=== PATIENT | female | born 1950 | race Two or more races ===

== ENCOUNTER 2024-03-07 16:13 | Emergency (ER) | payer MEDICARE ==
[~2024-03-07] VITALS: Ht 142.2 cm; Wt 70.3 kg
[2024-03-07 16:29] VITALS: TEMP 98.8
--- NOTE | 2024-03-07 16:32 | NUR ---
BIB FAMILY C/O N/V SINCE 1130 AM AFTER DIALYSIS DYSURIA AND URINARY FREQUENCY.
--- NOTE | 2024-03-07 16:37 | NUR ---
UA sent to lab
--- NOTE | 2024-03-07 16:45 | NUR ---
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
[2024-03-07 16:54] LABS: BASOPHILS % (AUTO) 0.4 % (0.0-2.0); EOSINOPHILS # (AUTO) 0.1 K/uL (0.0-0.7); EOSINOPHILS % (AUTO) 1.9 % (0.0-6.0); HEMATOCRIT 35 % (33-45); HEMOGLOBIN 11.1 g/dL (11.5-14.8); LYMPHOCYTES # (AUTO) 0.7 K/uL (0.8-4.8); LYMPHOCYTES % (AUTO) 10.9 % (20.0-44.0); MEAN CORPUSCULAR HEMOGLOBIN 31 PG (26.0-33.0); MEAN CORPUSCULAR HGB CONC 32 g/dl (31.0-36.0); MEAN CORPUSCULAR VOLUME 97 fL (82-100); MONOCYTES # (AUTO) 0.4 K/uL (0.1-1.30); MONOCYTES % (AUTO) 6.2 % (2.0-12.0); NEUTROPHILS # (AUTO) 5.3 K/uL (1.8-8.9); NEUTROPHILS % (AUTO) 80.6 % (43.0-81.0); PLATELET COUNT (AUTO) 171 K/uL (150-450); RED BLOOD CELL COUNT(AUTO) 3.58 MIL/uL (4.0-5.2); WHITE BLOOD COUNT (AUTO) 6.5 K/uL (4.3-11.0)
[2024-03-07 16:56] LABS: APPEARANCE,URINE SLIGHTLY CLOUDY (CLEAR); BILIRUBIN,URINE NEGATIVE (NEGATIVE); BLOOD, URINE TRACE-INTA Ery/uL (NEGATIVE); COLOR,URINE YELLOW (YELLOW); KETONES,URINE NEGATIVE (NEGATIVE); LEUKOCYTE ESTERASE ,URINE 3+ (NEGATIVE); NITRITE, URINE NEGATIVE (NEGATIVE); PROTEIN,URINE 3+ mg/dl (NEGATIVE); UGLUCOSE TRACE mg/dL (NEGATIVE); UROBILINOGEN,URINE 0.2 EU/dL (0.2)
[2024-03-07] MEDS ORDERED: ONDANSETRON HCL/PF 4 MG/2 ML VIAL IVP ONE (17:00)
[2024-03-07 17:07] LABS: CALCIUM, SERUM 7.7 mg/dL (8.5-10.1); CARBON DIOXIDE 30 mmol/L (21-32); CHLORIDE 97 mmol/L (98-107); CREATININE 2.8 mg/dL (0.6-1.3); GLUCOSE 141 mg/dL (74-106); POTASSIUM 3.6 mmol/L (3.5-5.1); SODIUM SERUM 137 mmol/L (136-145); UREA NITROGEN, BLOOD 23 mg/dL (7-18)
[2024-03-07] MEDS ORDERED: ONDANSETRON 4 MG TAB.RAPDIS ONE (17:10)
[2024-03-07 17:12] LABS: ALANINE AMINOTRANSFERASE 25 U/L (12-78); ALBUMIN 3.3 g/dL (3.4-5.0); ALKALINE PHOSPHATASE 176 U/L (46-116); ASPARTATE AMINOTRANSFERASE 24 U/L (15-37); BILIRUBIN,DIRECT 0.1 mg/dL (0.0-0.2); BILIRUBIN,TOTAL 0.4 mg/dL (0.2-1.0); LIPASE 27 U/L (16-77)
[2024-03-07] MEDS: ONDANSETRON 4 MG TAB.RAPDIS SL ONE (17:12)
[2024-03-07 17:15] LABS: WBC,URINE 51-80 /HPF (0-3)
[2024-03-07 17:16] LABS: ADD URINE CULTURE YES; BACTERIA,URINE 3+ /HPF (None Seen); SQUAMOUS EPITHELIAL CELL,UR 21-50 /HPF (None Seen)
[2024-03-07 17:20] LABS: INR 1.01 (0.91-1.10); PARTIAL THROMBOPLASTIN TIME 28.8 SEC (24.3-34.3); PROTHROMBIN TIME 10.7 SECS (9.2-11.1)
[2024-03-07] MEDS ORDERED: SULF1TAB48 PO (17:58)
[2024-03-07 18:47] VITALS: BP 130/70; O2SAT 96
--- NOTE | 2024-03-07 18:47 | NUR ---
Patient discharged to home in stable condition. Written and verbal after care instructions given. Patient verbalizes understanding of instruction.
[2024-03-07] MEDS ORDERED: CEPH-570 PO (21:14)
== END 2024-03-07 18:48 | disposition home or self-care (01) ==
LOC: ER 16:17
DX: N39.0 Urinary tract infection, site not specified (principal); E11.22 Type 2 diabetes mellitus with diabetic chronic kidney disease; I12.0 Hypertensive chronic kidney disease with stage 5 chronic kidney disease or end stage renal disease; N18.6 End stage renal disease; Z99.2 Dependence on renal dialysis
CPT/HCPCS: 99284; 93005; 85025; 80048; 87086; 83690; 80076; 81001; 36415; 84484; 85730; Q0162

== ENCOUNTER 2024-04-01 13:01 | Emergency (ER) | payer MEDICARE ==
[~2024-04-01] VITALS: Ht 142.2 cm; Wt 64.4 kg
[~2024-04-01 13:01] MED LIST: CEPH-570 PO
[2024-04-01 15:52] LABS: BASOPHILS % (AUTO) 0.6 % (0.0-2.0); EOSINOPHILS # (AUTO) 0.1 K/uL (0.0-0.7); EOSINOPHILS % (AUTO) 1.7 % (0.0-6.0); HEMATOCRIT 37 % (33-45); LYMPHOCYTES # (AUTO) 0.9 K/uL (0.8-4.8); MEAN CORPUSCULAR HEMOGLOBIN 32 PG (26.0-33.0); MEAN CORPUSCULAR HGB CONC 33 g/dl (31.0-36.0); MEAN CORPUSCULAR VOLUME 97 fL (82-100); MONOCYTES # (AUTO) 0.7 K/uL (0.1-1.30); MONOCYTES % (AUTO) 11.1 % (2.0-12.0); NEUTROPHILS # (AUTO) 4.2 K/uL (1.8-8.9); NEUTROPHILS % (AUTO) 71.6 % (43.0-81.0); PLATELET COUNT (AUTO) 167 K/uL (150-450); RED BLOOD CELL COUNT(AUTO) 3.79 MIL/uL (4.0-5.2); RED CELL DISTRIBUTION WIDTH 13.5 % (11.5-15.0); WHITE BLOOD COUNT (AUTO) 5.9 K/uL (4.3-11.0)
[2024-04-01 16:06] LABS: CARBON DIOXIDE 28 mmol/L (21-32); CHLORIDE 98 mmol/L (98-107); GLUCOSE 190 mg/dL (74-106); POTASSIUM 3.3 mmol/L (3.5-5.1); SODIUM SERUM 137 mmol/L (136-145); UREA NITROGEN, BLOOD 24 mg/dL (7-18)
[2024-04-01 16:12] LABS: ALANINE AMINOTRANSFERASE 16 U/L (12-78); ALBUMIN 3.4 g/dL (3.4-5.0); ALKALINE PHOSPHATASE 157 U/L (46-116); ASPARTATE AMINOTRANSFERASE 16 U/L (15-37); BILIRUBIN,DIRECT 0.1 mg/dL (0.0-0.2); BILIRUBIN,TOTAL 0.4 mg/dL (0.2-1.0); LIPASE 37 U/L (16-77); TOTAL PROTEIN, SERUM 7.2 g/dL (6.4-8.2)
[2024-04-01 16:17] LABS: CALCIUM, SERUM 7.6 mg/dL (8.5-10.1)
[2024-04-01 17:00] VITALS: BP 157/64; TEMP 98.8; O2SAT 100
== END 2024-04-01 19:15 | disposition home or self-care (01) ==
LOC: ER 13:06
DX: S09.90XA Unspecified injury of head, initial encounter (principal); M25.531 Pain in right wrist; R11.2 Nausea with vomiting, unspecified; I12.0 Hypertensive chronic kidney disease with stage 5 chronic kidney disease or end stage renal disease; N18.6 End stage renal disease; E11.22 Type 2 diabetes mellitus with diabetic chronic kidney disease; Z88.2 Allergy status to sulfonamides; W07.XXXA Fall from chair, initial encounter; Y93.89 Activity, other specified; Y92.89 Other specified places as the place of occurrence of the external cause; Y99.8 Other external cause status
CPT/HCPCS: 36415; 70450-TC; 71045-TC; 72170-TC; 73110; 73130-TC; 80048-TC; 80076-TC; 83690-TC; 85025-TC

== ENCOUNTER 2024-04-22 11:04 | Inpatient (IN) | payer MEDICARE ==
[~2024-04-22] VITALS: Ht 142.2 cm; Wt 64.9 kg
[2024-04-22 11:52] LABS: BASOPHILS # (AUTO) 0.1 K/uL (0.0-0.2); BASOPHILS % (AUTO) 1.4 % (0.0-2.0); EOSINOPHILS # (AUTO) 0.1 K/uL (0.0-0.7); EOSINOPHILS % (AUTO) 0.7 % (0.0-6.0); HEMATOCRIT 34 % (33-45); HEMOGLOBIN 11.1 g/dL (11.5-14.8); LYMPHOCYTES # (AUTO) 0.7 K/uL (0.8-4.8); LYMPHOCYTES % (AUTO) 8.1 % (20.0-44.0); MEAN CORPUSCULAR HEMOGLOBIN 31 PG (26.0-33.0); MEAN CORPUSCULAR HGB CONC 33 g/dl (31.0-36.0); MEAN CORPUSCULAR VOLUME 93 fL (82-100); MONOCYTES # (AUTO) 0.6 K/uL (0.1-1.30); MONOCYTES % (AUTO) 7.2 % (2.0-12.0); NEUTROPHILS # (AUTO) 6.7 K/uL (1.8-8.9); NEUTROPHILS % (AUTO) 82.6 % (43.0-81.0); PLATELET COUNT (AUTO) 175 K/uL (150-450); RED CELL DISTRIBUTION WIDTH 14.2 % (11.5-15.0); WHITE BLOOD COUNT (AUTO) 8.2 K/uL (4.3-11.0)
[2024-04-22] MEDS ORDERED: BACI/NEOM/POLY B OINT PKT 1 UDPKT PACKET ONE (12:59)
[2024-04-22] MEDS ORDERED: TDAP [DIPH/PERTUSSIS/TET] 0.5 ML VIAL IM ONE (12:59)
[2024-04-22 13:02] LABS: CALCIUM, SERUM 6.4 mg/dL (8.5-10.1); CARBON DIOXIDE 18 mmol/L (21-32); CHLORIDE 97 mmol/L (98-107); GLUCOSE 307 mg/dL (74-106); SODIUM SERUM 132 mmol/L (136-145)
[2024-04-22] MEDS: TDAP [DIPH/PERTUSSIS/TET] 0.5 ML VIAL IM ONE (13:06)
[2024-04-22] MEDS: BACI/NEOM/POLY B OINT PKT 1 UDPKT PACKET TP ONE (13:06)
[2024-04-22 13:31] LABS: CREATININE 6.9 mg/dL (0.6-1.3); POTASSIUM 6.1 mmol/L (3.5-5.1); UREA NITROGEN, BLOOD 93 mg/dL (7-18)
[2024-04-22] MEDS ORDERED: CALC667C6 PO (13:47)
[2024-04-22] MEDS ORDERED: CLOP75TA15 PO (13:47)
[2024-04-22] MEDS ORDERED: ARIP5TAB10 PO (13:47)
[2024-04-22] MEDS ORDERED: HYDR100T27 PO (13:47)
[2024-04-22] MEDS ORDERED: HYDR-500 PO (13:47)
[2024-04-22] MEDS ORDERED: AMLO10TA4 PO (13:47)
[2024-04-22] MEDS ORDERED: FLUO20CA42 PO (13:47)
[2024-04-22] MEDS ORDERED: ATOR20TA PO (13:47)
[2024-04-22] MEDS ORDERED: INSULIN REGULAR, HUMAN 100 UNIT/ML 10 ML VIAL ONE (14:00)
[2024-04-22] MEDS ORDERED: SODIUM BICARBONATE SYR 50 MEQ/50 ML DISP.SYRIN ONE ×2 (14:00→14:03)
[2024-04-22] MEDS: INSULIN REGULAR, HUMAN 100 UNIT/ML 10 ML VIAL IV ONE (14:16)
[2024-04-22] MEDS ORDERED: CALCIUM CHLORIDE 1,000 MG/10 ML DISP.SYRIN ONE (14:17)
[2024-04-22] MEDS: SODIUM BICARBONATE SYR 50 MEQ/50 ML DISP.SYRIN IV ONE (14:18)
[2024-04-22] MEDS: CALCIUM CHLORIDE 1,000 MG/10 ML DISP.SYRIN IV ONE (14:18)
[2024-04-22] MEDS ORDERED: ALBUTEROL FS 2.5 MG/3 ML VIAL.NEB ONE (14:22)
[2024-04-22 14:28] VITALS: O2SAT 98
[2024-04-22] MEDS: ALBUTEROL FS 2.5 MG/3 ML VIAL.NEB NEB ONE (14:28)
[2024-04-22 15:06] VITALS: O2SAT 100
[2024-04-22] MEDS ORDERED: Z GUARD REMEDY 4 OZ OINT TP PRN (15:30)
[2024-04-22] MEDS ORDERED: ONDANSETRON HCL/PF 4 MG/2 ML VIAL IVP PRN (15:30)
[2024-04-22] MEDS: ACETAMINOPHEN 325 MG TABLET PO PRN (15:57)
[2024-04-22 16:00] VITALS: BP 125/42; TEMP 98.4; O2SAT 95
[2024-04-22] MEDS: hydrALAZINE HCL 25 MG TABLET PO SCH (17:00)
[2024-04-22] MEDS: FLUOXETINE HCL 20 MG CAPSULE PO SCH (17:49)
[2024-04-22] MEDS: CALCIUM ACETATE 667 MG CAP/TAB PO SCH (17:49)
[2024-04-22 18:00] VITALS: BP 120/61; TEMP 98.6; TEMP 98.7; O2SAT 100
[2024-04-22] MEDS ORDERED: DEXTROSE 50%-WATER 50 ML DISP.SYRIN IV PRN (22:30)
[2024-04-22] MEDS: ATORVASTATIN 10 MG TABLET PO SCH (22:31)
[2024-04-22] MEDS: ARIPIPRAZOLE 5 MG TABLET PO SCH (22:31)
[2024-04-22] MEDS: BLOOD SUGAR DIAGNOSTIC 1 EACH STRIP IN SCH (22:41)
[2024-04-22] MEDS: INSULIN REGULAR, HUMAN 100 UNIT/ML 3 ML VIAL SQ PRN (22:56)
[2024-04-23] VITALS: BP 149/50; TEMP 98.1; O2SAT 97
[2024-04-23 04:00] VITALS: BP 144/52; TEMP 99.3; O2SAT 96
[2024-04-23 06:56] LABS: BASOPHILS % (AUTO) 0.3 % (0.0-2.0); EOSINOPHILS # (AUTO) 0.1 K/uL (0.0-0.7); EOSINOPHILS % (AUTO) 1.3 % (0.0-6.0); HEMATOCRIT 34 % (33-45); HEMOGLOBIN 11.2 g/dL (11.5-14.8); LYMPHOCYTES # (AUTO) 0.7 K/uL (0.8-4.8); LYMPHOCYTES % (AUTO) 10.3 % (20.0-44.0); MEAN CORPUSCULAR HEMOGLOBIN 31 PG (26.0-33.0); MEAN CORPUSCULAR HGB CONC 33 g/dl (31.0-36.0); MEAN CORPUSCULAR VOLUME 92 fL (82-100); MONOCYTES # (AUTO) 0.7 K/uL (0.1-1.30); MONOCYTES % (AUTO) 10.7 % (2.0-12.0); NEUTROPHILS # (AUTO) 5.2 K/uL (1.8-8.9); NEUTROPHILS % (AUTO) 77.4 % (43.0-81.0); PLATELET COUNT (AUTO) 163 K/uL (150-450); RED BLOOD CELL COUNT(AUTO) 3.65 MIL/uL (4.0-5.2); RED CELL DISTRIBUTION WIDTH 13.8 % (11.5-15.0); WHITE BLOOD COUNT (AUTO) 6.7 K/uL (4.3-11.0)
[2024-04-23 07:03] LABS: CALCIUM, SERUM 7.1 mg/dL (8.5-10.1); CARBON DIOXIDE 26 mmol/L (21-32); CHLORIDE 99 mmol/L (98-107); CREATININE 5.3 mg/dL (0.6-1.3); GLUCOSE 116 mg/dL (74-106); MAGNESIUM 2.3 mg/dL (1.8-2.4); PHOSPHORUS 5.9 mg/dL (2.5-4.9); POTASSIUM 4.4 mmol/L (3.5-5.1); SODIUM SERUM 139 mmol/L (136-145); UREA NITROGEN, BLOOD 59 mg/dL (7-18)
[2024-04-23 08:00] VITALS: BP 146/60; TEMP 97.9; O2SAT 97
[2024-04-23] MEDS: CLOPIDOGREL BISULFATE 75 MG TABLET PO SCH (08:21)
[2024-04-23 08:22] VITALS: BP 146/60
[2024-04-23] MEDS: AMLODIPINE BESYLATE 10 MG TABLET PO SCH (08:22)
== END 2024-04-23 13:42 | disposition home or self-care (01) | DRG 604 ==
LOC: ER 11:06 → TELE 15:13
PROVIDERS: ADMIT Nurse Practitioner Acute Care; ATTEND Nurse Practitioner Acute Care
PROC: 5A1D70Z Performance of Urinary Filtration, Intermittent, Less than 6 Hours Per Day (ICD-10-PCS; principal; 2024-04-23)
DX: S00.83XA Contusion of other part of head, initial encounter (principal); N18.6 End stage renal disease; E87.1 Hypo-osmolality and hyponatremia; E87.20 Acidosis, unspecified; I12.0 Hypertensive chronic kidney disease with stage 5 chronic kidney disease or end stage renal disease; E11.22 Type 2 diabetes mellitus with diabetic chronic kidney disease; E66.9 Obesity, unspecified; E78.5 Hyperlipidemia, unspecified; E83.51 Hypocalcemia; E87.5 Hyperkalemia; F32.A Depression, unspecified; M89.8X9 Other specified disorders of bone, unspecified site; S00.81XA Abrasion of other part of head, initial encounter; Z88.2 Allergy status to sulfonamides; Z99.2 Dependence on renal dialysis; W01.0XXA Fall on same level from slipping, tripping and stumbling without subsequent striking against object, initial encounter; Y93.9 Activity, unspecified; Y92.009 Unspecified place in unspecified non-institutional (private) residence as the place of occurrence of the external cause; S00.03XA Contusion of scalp, initial encounter; R40.2142 Coma scale, eyes open, spontaneous, at arrival to emergency department; R40.2362 Coma scale, best motor response, obeys commands, at arrival to emergency department; R40.2252 Coma scale, best verbal response, oriented, at arrival to emergency department
CPT/HCPCS: 36415; 70450-TC; 71045-TC; 72125-TC; 80048-TC; 82962-TC; 83735-TC; 84100-TC; 84484-TC; 85025-TC; 90715; 90935-TC; 93307-TC; 94799-TC; G0378; J1815; J3490

== ENCOUNTER 2024-06-13 16:50 | Emergency (ER) | payer MEDICARE ==
[~2024-06-13] VITALS: Ht 142.2 cm; Wt 66.2 kg
[~2024-06-13 16:50] MED LIST changes: +AMLO10TA4 PO; +ARIP5TAB10 PO; +ATOR20TA PO; +CALC667C6 PO; -CEPH-570 PO; +CLOP75TA15 PO; +FLUO20CA42 PO; +HYDR-500 PO; +HYDR100T27 PO
[2024-06-13 17:15] VITALS: TEMP 98.3
[2024-06-13] MEDS ORDERED: MORPHINE SULFATE INJ 4 MG/ML DISP.SYRIN ONE (17:43)
[2024-06-13] MEDS ORDERED: METHOCARBAMOL (500MG) 500 MG TABLET ONE (17:43)
[2024-06-13] MEDS: MORPHINE SULFATE INJ 2 MG/ML DISP.SYRIN IV ONE (18:27)
[2024-06-13] MEDS: METHOCARBAMOL (750MG) 750 MG TABLET PO SCH (18:28)
[2024-06-13 18:32] LABS: BASOPHILS % (AUTO) 0.5 % (0.0-2.0); EOSINOPHILS # (AUTO) 0.1 K/uL (0.0-0.7); HEMATOCRIT 37 % (33-45); HEMOGLOBIN 12.2 g/dL (11.5-14.8); LYMPHOCYTES # (AUTO) 2.4 K/uL (0.8-4.8); LYMPHOCYTES % (AUTO) 27.2 % (20.0-44.0); MEAN CORPUSCULAR HEMOGLOBIN 30 PG (26.0-33.0); MEAN CORPUSCULAR HGB CONC 33 g/dl (31.0-36.0); MEAN CORPUSCULAR VOLUME 92 fL (82-100); MONOCYTES # (AUTO) 0.7 K/uL (0.1-1.30); MONOCYTES % (AUTO) 7.9 % (2.0-12.0); NEUTROPHILS # (AUTO) 5.6 K/uL (1.8-8.9); NEUTROPHILS % (AUTO) 63.4 % (43.0-81.0); PLATELET COUNT (AUTO) 188 K/uL (150-450); RED BLOOD CELL COUNT(AUTO) 4.03 MIL/uL (4.0-5.2); RED CELL DISTRIBUTION WIDTH 16.8 % (11.5-15.0); WHITE BLOOD COUNT (AUTO) 8.8 K/uL (4.3-11.0)
[2024-06-13 18:46] LABS: CARBON DIOXIDE 31 mmol/L (21-32); CHLORIDE 95 mmol/L (98-107); CREATININE 3.6 mg/dL (0.6-1.3); GLUCOSE 76 mg/dL (74-106); POTASSIUM 3.9 mmol/L (3.5-5.1); SODIUM SERUM 135 mmol/L (136-145); UREA NITROGEN, BLOOD 33 mg/dL (7-18)
[2024-06-13 18:51] LABS: ALANINE AMINOTRANSFERASE 23 U/L (12-78); ALBUMIN 3.7 g/dL (3.4-5.0); ALKALINE PHOSPHATASE 196 U/L (46-116); ASPARTATE AMINOTRANSFERASE 18 U/L (15-37); BILIRUBIN,DIRECT 0.2 mg/dL (0.0-0.2); BILIRUBIN,TOTAL 1.3 mg/dL (0.2-1.0); TOTAL PROTEIN, SERUM 7.4 g/dL (6.4-8.2)
[2024-06-13] MEDS ORDERED: TIZA4TAB5 PO (20:17)
[2024-06-13 23:28] VITALS: BP 119/84; O2SAT 98
== END 2024-06-13 21:00 | disposition home or self-care (01) ==
LOC: ER 16:56
DX: S22.32XA Fracture of one rib, left side, initial encounter for closed fracture (principal); N18.6 End stage renal disease; E11.22 Type 2 diabetes mellitus with diabetic chronic kidney disease; I12.0 Hypertensive chronic kidney disease with stage 5 chronic kidney disease or end stage renal disease; E78.5 Hyperlipidemia, unspecified; R51.9 Headache, unspecified; M17.0 Bilateral primary osteoarthritis of knee; Z79.02 Long term (current) use of antithrombotics/antiplatelets; Z79.899 Other long term (current) drug therapy; Z88.2 Allergy status to sulfonamides; Z99.2 Dependence on renal dialysis; W18.30XA Fall on same level, unspecified, initial encounter; Y93.89 Activity, other specified; Y92.89 Other specified places as the place of occurrence of the external cause; Y99.8 Other external cause status
CPT/HCPCS: 99285; 70450; 96374; 72128; 74176; 85025; 80048; 80076; 36415; J2270

== ENCOUNTER 2024-06-16 13:58 | Inpatient (IN) | payer MEDICARE, OTHER ==
[~2024-06-16] VITALS: Ht 142.2 cm; Wt 70.3 kg
[~2024-06-16 13:58] MED LIST changes: +TIZA4TAB5 PO
[2024-06-16] MEDS ORDERED: MORPHINE SULFATE INJ 4 MG/ML DISP.SYRIN ONE (14:28)
[2024-06-16] MEDS: MORPHINE SULFATE INJ 2 MG/ML DISP.SYRIN IV ONE (14:30)
[2024-06-16 14:42] LABS: BASOPHILS # (AUTO) 0.1 K/uL (0.0-0.2); BASOPHILS % (AUTO) 1.1 % (0.0-2.0); EOSINOPHILS % (AUTO) 0.4 % (0.0-6.0); HEMATOCRIT 33 % (33-45); HEMOGLOBIN 11.2 g/dL (11.5-14.8); LYMPHOCYTES # (AUTO) 0.6 K/uL (0.8-4.8); LYMPHOCYTES % (AUTO) 7.2 % (20.0-44.0); MEAN CORPUSCULAR HEMOGLOBIN 31 PG (26.0-33.0); MEAN CORPUSCULAR HGB CONC 34 g/dl (31.0-36.0); MEAN CORPUSCULAR VOLUME 93 fL (82-100); MONOCYTES # (AUTO) 0.5 K/uL (0.1-1.30); MONOCYTES % (AUTO) 6.7 % (2.0-12.0); NEUTROPHILS # (AUTO) 6.5 K/uL (1.8-8.9); NEUTROPHILS % (AUTO) 84.6 % (43.0-81.0); PLATELET COUNT (AUTO) 152 K/uL (150-450); RED CELL DISTRIBUTION WIDTH 16.6 % (11.5-15.0); WHITE BLOOD COUNT (AUTO) 7.7 K/uL (4.3-11.0)
[2024-06-16 15:13] LABS: CALCIUM, SERUM 6.2 mg/dL (8.5-10.1); CREATININE 6.2 mg/dL (0.6-1.3)
[2024-06-16 15:18] LABS: POTASSIUM 6.5 mmol/L (3.5-5.1)
[2024-06-16] MEDS: SODIUM BICARBONATE SYR 50 MEQ/50 ML DISP.SYRIN IV ONE (15:30)
[2024-06-16] MEDS: SODIUM ZIRCONIUM CYCLOSILICATE 10 GM POWD.PACK PO ONE (15:30)
[2024-06-16] MEDS ORDERED: SODIUM BICARBONATE SYR 50 MEQ/50 ML DISP.SYRIN ONE (15:42)
[2024-06-16] MEDS ORDERED: Calcium Gluconate 0.465 MEQ/ML VIAL IV ONE (15:42)
[2024-06-16] MEDS ORDERED: SODIUM ZIRCONIUM CYCLOSILICATE 10 GM POWD.PACK ONE (15:43)
[2024-06-16] MEDS: Calcium Gluconate 1GM/10ML 4.65 MEQ in IV NS 0.9% 100 ML IV ONE (15:51)
[2024-06-16] MEDS: Calcium Gluconate 0.465 MEQ/ML VIAL IV ONE (16:00)
[2024-06-16] MEDS: CEFTRIAXONE 1 G in IV D5W 50 ML IV ONE (17:44)
[2024-06-16] MEDS: AZITHROMYCIN 500 MG in IV D5W 250 ML IV ONE (18:05)
[2024-06-16] MEDS ORDERED: hydrOXYzine 10 MG TABLET PO PRN (20:00)
[2024-06-16] MEDS: ENOXAPARIN SODIUM 30 MG/0.3 ML DISP.SYRIN SQ SCH (20:00)
[2024-06-16] MEDS ORDERED: ONDANSETRON HCL/PF 4 MG/2 ML VIAL IVP PRN (20:00)
[2024-06-16] MEDS ORDERED: MORPHINE SULFATE INJ 4 MG/ML DISP.SYRIN IV PRN (20:00)
[2024-06-16] MEDS ORDERED: ACETAMINOPHEN 325 MG TABLET PO PRN (20:00)
[2024-06-16] MEDS: GABAPENTIN 100 MG CAPSULE PO SCH (20:44)
[2024-06-16] MEDS: LIDOCAINE 5% (PATCH) 1 EA PATCH TP SCH (20:44)
[2024-06-16] MEDS: ATORVASTATIN 10 MG TABLET PO SCH (21:28)
[2024-06-16] MEDS: ARIPIPRAZOLE 5 MG TABLET PO SCH (21:28)
[2024-06-16] MEDS: SODIUM ZIRCONIUM CYCLOSILICATE 5 GM POWD.PACK PO ONE (21:28)
[2024-06-17 04:00] VITALS: BP 115/69; TEMP 98.4; O2SAT 100
[2024-06-17 07:00] LABS: BASOPHILS % (AUTO) 0.2 % (0.0-2.0); EOSINOPHILS # (AUTO) 0.2 K/uL (0.0-0.7); HEMATOCRIT 34 % (33-45); HEMOGLOBIN 11.3 g/dL (11.5-14.8); LYMPHOCYTES # (AUTO) 0.9 K/uL (0.8-4.8); MEAN CORPUSCULAR HEMOGLOBIN 31 PG (26.0-33.0); MEAN CORPUSCULAR HGB CONC 33 g/dl (31.0-36.0); MEAN CORPUSCULAR VOLUME 92 fL (82-100); MONOCYTES # (AUTO) 0.6 K/uL (0.1-1.30); MONOCYTES % (AUTO) 7.3 % (2.0-12.0); NEUTROPHILS # (AUTO) 6.1 K/uL (1.8-8.9); NEUTROPHILS % (AUTO) 78.5 % (43.0-81.0); PLATELET COUNT (AUTO) 150 K/uL (150-450); RED BLOOD CELL COUNT(AUTO) 3.67 MIL/uL (4.0-5.2); RED CELL DISTRIBUTION WIDTH 16.4 % (11.5-15.0); WHITE BLOOD COUNT (AUTO) 7.8 K/uL (4.3-11.0)
[2024-06-17 07:34] LABS: CALCIUM, SERUM 6.2 mg/dL (8.5-10.1); CARBON DIOXIDE 30 mmol/L (21-32); CHLORIDE 96 mmol/L (98-107); CREATININE 6.7 mg/dL (0.6-1.3); GLUCOSE 121 mg/dL (74-106); MAGNESIUM 2.6 mg/dL (1.8-2.4); POTASSIUM 4.8 mmol/L (3.5-5.1); SODIUM SERUM 132 mmol/L (136-145); UREA NITROGEN, BLOOD 72 mg/dL (7-18)
[2024-06-17 08:00] VITALS: BP 131/60; TEMP 97.9; O2SAT 92
[2024-06-17 08:04] LABS: PHOSPHORUS 9.9 mg/dL (2.5-4.9)
[2024-06-17] MEDS: CALCIUM ACETATE 667 MG CAP/TAB PO SCH (09:10)
[2024-06-17] MEDS: hydrALAZINE HCL 50 MG TABLET PO SCH (09:11)
[2024-06-17] MEDS: FLUOXETINE HCL 20 MG CAPSULE PO SCH (09:12)
[2024-06-17] MEDS: TIZANIDINE HCL 4 MG TABLET PO SCH (09:12)
[2024-06-17] MEDS: AMLODIPINE BESYLATE 10 MG TABLET PO SCH (09:12)
[2024-06-17] MEDS: CLOPIDOGREL BISULFATE 75 MG TABLET PO SCH (09:12)
[2024-06-17] MEDS: Z GUARD REMEDY 4 OZ OINT TP PRN (09:13)
[2024-06-17 12:00] VITALS: BP 122/41; TEMP 97.9; O2SAT 92
[2024-06-17 16:00] VITALS: BP 112/49; TEMP 97.8; O2SAT 91
[2024-06-17] MEDS: SEVELAMER CARBONATE 800 MG POWD.PACK GT SCH (17:40)
[2024-06-17 20:00] VITALS: BP 118/76; TEMP 99.1; O2SAT 96
[2024-06-18] VITALS: BP 137/62; TEMP 99; O2SAT 93
[2024-06-18 04:00] VITALS: BP 137/59; TEMP 98.4; O2SAT 99
[2024-06-18 07:56] LABS: BASOPHILS % (AUTO) 0.4 % (0.0-2.0); EOSINOPHILS # (AUTO) 0.1 K/uL (0.0-0.7); EOSINOPHILS % (AUTO) 1.3 % (0.0-6.0); HEMATOCRIT 36 % (33-45); HEMOGLOBIN 11.7 g/dL (11.5-14.8); LYMPHOCYTES # (AUTO) 0.9 K/uL (0.8-4.8); LYMPHOCYTES % (AUTO) 13.6 % (20.0-44.0); MEAN CORPUSCULAR HEMOGLOBIN 30 PG (26.0-33.0); MEAN CORPUSCULAR HGB CONC 33 g/dl (31.0-36.0); MEAN CORPUSCULAR VOLUME 93 fL (82-100); MONOCYTES # (AUTO) 0.5 K/uL (0.1-1.30); MONOCYTES % (AUTO) 8.5 % (2.0-12.0); NEUTROPHILS # (AUTO) 4.8 K/uL (1.8-8.9); NEUTROPHILS % (AUTO) 76.2 % (43.0-81.0); PLATELET COUNT (AUTO) 144 K/uL (150-450); RED BLOOD CELL COUNT(AUTO) 3.87 MIL/uL (4.0-5.2); WHITE BLOOD COUNT (AUTO) 6.3 K/uL (4.3-11.0)
[2024-06-18 08:00] VITALS: BP 144/55; TEMP 98.2; O2SAT 99
[2024-06-18 08:15] LABS: CALCIUM, SERUM 7.6 mg/dL (8.5-10.1); CREATININE 4.8 mg/dL (0.6-1.3); MAGNESIUM 2.6 mg/dL (1.8-2.4); PHOSPHORUS 6.6 mg/dL (2.5-4.9); POTASSIUM 3.9 mmol/L (3.5-5.1)
[2024-06-18 12:00] VITALS: BP 132/61; TEMP 98.3; O2SAT 99
[2024-06-18 16:00] VITALS: BP 128/60; TEMP 98.5; O2SAT 99
[2024-06-18 20:00] VITALS: BP_SYST 116; BP_SYST 89; BP_DIAS 40; BP_DIAS 72; TEMP 97.2; TEMP 97.5; O2SAT 94
[2024-06-19] VITALS: BP 140/60; TEMP 98; O2SAT 94
[2024-06-19 04:00] VITALS: BP 137/60; TEMP 98.6; O2SAT 94
[2024-06-19 08:00] VITALS: BP 140/45; TEMP 98.3; O2SAT 94
[2024-06-19 08:59] LABS: BASOPHILS % (AUTO) 0.4 % (0.0-2.0); EOSINOPHILS # (AUTO) 0.1 K/uL (0.0-0.7); HEMATOCRIT 34 % (33-45); HEMOGLOBIN 11.2 g/dL (11.5-14.8); LYMPHOCYTES # (AUTO) 0.9 K/uL (0.8-4.8); MEAN CORPUSCULAR HEMOGLOBIN 31 PG (26.0-33.0); MEAN CORPUSCULAR HGB CONC 33 g/dl (31.0-36.0); MEAN CORPUSCULAR VOLUME 93 fL (82-100); MONOCYTES # (AUTO) 0.6 K/uL (0.1-1.30); MONOCYTES % (AUTO) 8.5 % (2.0-12.0); NEUTROPHILS # (AUTO) 5.1 K/uL (1.8-8.9); NEUTROPHILS % (AUTO) 76.1 % (43.0-81.0); PLATELET COUNT (AUTO) 154 K/uL (150-450); RED BLOOD CELL COUNT(AUTO) 3.65 MIL/uL (4.0-5.2); RED CELL DISTRIBUTION WIDTH 15.9 % (11.5-15.0); WHITE BLOOD COUNT (AUTO) 6.7 K/uL (4.3-11.0)
[2024-06-19 09:11] LABS: MAGNESIUM 2.4 mg/dL (1.8-2.4); PHOSPHORUS 7.2 mg/dL (2.5-4.9); POTASSIUM 4.6 mmol/L (3.5-5.1)
[2024-06-19] MEDS ORDERED: LIDO30AD10 TP (11:33)
[2024-06-19] MEDS ORDERED: SEVE800T7 PO (11:33)
[2024-06-19] MEDS ORDERED: TRAM50TA2 PO (11:33)
[2024-06-19] MEDS ORDERED: GABA100C PO (11:33)
[2024-06-19 12:00] VITALS: BP 108/55; TEMP 99.3; O2SAT 94
[2024-06-19] MEDS: SEVELAMER CARBONATE 800 MG TABLET PO SCH (12:08)
[2024-06-19 16:00] VITALS: BP 139/46; TEMP 98.8; O2SAT 94
[2024-06-19 20:00] VITALS: BP 106/53; TEMP 98.2; O2SAT 93
[2024-06-20] VITALS (7 sets, daily range): BP systolic 92–140; BP diastolic 48–69; TEMP 98.2–99.1; O2SAT 94–98
[2024-06-21 05:07] LABS: HEPATITIS B SURFACE AB Reactive (.)
== END 2024-06-20 17:45 | DRG 183 ==
LOC: ER 14:00 → TELE1 18:57 → MEDSG1 06-20 10:14
PROVIDERS: ADMIT Nurse Practitioner Acute Care; ATTEND Nurse Practitioner Acute Care
PROC: 5A1D70Z Performance of Urinary Filtration, Intermittent, Less than 6 Hours Per Day (ICD-10-PCS; principal; 2024-06-17)
DX: S22.42XA Multiple fractures of ribs, left side, initial encounter for closed fracture (principal); N18.6 End stage renal disease; I12.0 Hypertensive chronic kidney disease with stage 5 chronic kidney disease or end stage renal disease; J90 Pleural effusion, not elsewhere classified; W19.XXXA Unspecified fall, initial encounter; Z99.2 Dependence on renal dialysis; E87.5 Hyperkalemia; E78.5 Hyperlipidemia, unspecified; F32.A Depression, unspecified; K59.00 Constipation, unspecified; Z88.2 Allergy status to sulfonamides; E11.22 Type 2 diabetes mellitus with diabetic chronic kidney disease; R91.8 Other nonspecific abnormal finding of lung field; R07.81 Pleurodynia; R19.09 Other intra-abdominal and pelvic swelling, mass and lump; Y93.9 Activity, unspecified; Y92.009 Unspecified place in unspecified non-institutional (private) residence as the place of occurrence of the external cause
CPT/HCPCS: 36415; 70450-TC; 71250-TC; 72128-TC; 80048-TC; 80076-TC; 83735-TC; 84100-TC; 85025-TC; 86706; 87040-TC; 87340; 90935-TC; 97110-TC; 97116-TC; 97530-TC; A4223; G0378; J0456; J0610; J0696; J1650; J2270; J3490; J7030; J7060

== ENCOUNTER 2024-09-12 21:57 | Emergency (ER) | payer MEDICARE, OTHER ==
[~2024-09-12] VITALS: Ht 142.2 cm; Wt 64.9 kg
[~2024-09-12 21:57] MED LIST changes: +GABA100C PO; +LIDO30AD10 TP; +SEVE800T7 PO; +TRAM50TA2 PO
[2024-09-13 00:32] VITALS: BP 155/63; TEMP 98.5; O2SAT 99
== END 2024-09-13 00:32 | disposition home or self-care (01) ==
LOC: ER 22:06
DX: S09.90XA Unspecified injury of head, initial encounter (principal); I12.0 Hypertensive chronic kidney disease with stage 5 chronic kidney disease or end stage renal disease; N18.6 End stage renal disease; E11.22 Type 2 diabetes mellitus with diabetic chronic kidney disease; E78.5 Hyperlipidemia, unspecified; Z79.02 Long term (current) use of antithrombotics/antiplatelets; Z79.899 Other long term (current) drug therapy; Z86.73 Personal history of transient ischemic attack (TIA), and cerebral infarction without residual deficits; Z88.2 Allergy status to sulfonamides; Z99.2 Dependence on renal dialysis; W18.30XA Fall on same level, unspecified, initial encounter; Y93.89 Activity, other specified; Y92.89 Other specified places as the place of occurrence of the external cause; Y99.8 Other external cause status
CPT/HCPCS: 70450-TC